=== PATIENT | male | born 1990 | race Caucasian/White ===

== ENCOUNTER 2019-05-14 21:26 | Emergency (ER) | payer OTHER ==
[~2019-05-14] VITALS: Ht 180.3 cm; Wt 100.7 kg
[2019-05-14 21:55] VITALS: Ht 180.3 cm; Wt 100.7 kg
[2019-05-14 23:37] LABS: BASOPHIL % 0.6 % (0-2); PLATELET COUNT 191 x10^3mcL (130-400); RED CELL DISTRIBUTION WIDTH 12.7 % (11.5-14.5)
[2019-05-14 23:52] LABS: CHLORIDE SERUM 105 mmol/L (98-107); GFR1 > 60 mL/min; GLUCOSE SERUM 103 mg/dL (74-106); POTASSIUM SERUM 3.7 mmol/L (3.5-5.1); SODIUM SERUM 139 mmol/L (136-145)
[2019-05-14 23:56] LABS: ALBUMIN 3.8 g/dL (3.4-5.0); ALKALINE PHOSPHATASE 80 U/L (46-116); ALT/SGPT 58 U/L (16-63); AST/SGOT 30 U/L (15-37); BILIRUBIN TOTAL 1.36 mg/dL (0.20-1.00); LIPASE 77 IU/L (73-393); TOTAL PROTEIN, SERUM 7.5 g/dL (6.4-8.2)
[2019-05-15 00:31] VITALS: BP 142/89
== END 2019-05-15 00:31 | disposition home or self-care (01) ==
LOC: ED 21:26
PROVIDERS: Emergency Medicine
DX: A08.4 Viral intestinal infection, unspecified (principal)
CPT/HCPCS: 36415; 87804

== ENCOUNTER 2020-01-22 09:50 | Emergency (ER) | payer OTHER ==
[~2020-01-22] VITALS: Ht 180.3 cm; Wt 99.8 kg
[2020-01-22 09:54] VITALS: Ht 180.3 cm; Wt 99.8 kg
[2020-01-22 11:23] VITALS: BP 128/91
== END 2020-01-22 11:55 | disposition home or self-care (01) ==
LOC: ED 09:50
DX: U07.1 COVID-19 (principal)

== ENCOUNTER 2020-05-09 11:26 | Emergency (ER) | payer OTHER ==
[~2020-05-09] VITALS: Ht 180.3 cm; Wt 102.5 kg
[2020-05-09 11:46] VITALS: BP 150/102; Ht 180.3 cm; Wt 102.5 kg
== END 2020-05-09 13:09 | disposition home or self-care (01) ==
LOC: ED 11:26
DX: S60.112A Contusion of left thumb with damage to nail, initial encounter (principal); W23.0XXA Caught, crushed, jammed, or pinched between moving objects, initial encounter; Y93.89 Activity, other specified; Y92.89 Other specified places as the place of occurrence of the external cause; Y99.8 Other external cause status